=== PATIENT | male | born 1935 | race Caucasian/White ===

== ENCOUNTER → 2020-04-24 | Outpatient (CLI) | payer MEDICARE, OTHER ==
[~2020-04-24] MED LIST: ACET-1600 PO; CHOL10003 PO; HYDR-3240 PO; WARF2TAB99 PO
[2020-04-24 12:03] LABS: BASOPHILS % (AUTO) 1 % (0-1); EOSINOPHILS % (AUTO) 1 % (1-7); LYMPHOCYTES % (AUTO) 12 % (22-44); MEAN CORPUSCULAR HEMOGLOBIN 32.6 pg (27.5-34.5); MEAN CORPUSCULAR HGB CONC 33.4 g/dL (33.2-36.2); MEAN PLATELET VOLUME 8.7 fL (7.4-10.4); MONOCYTES % (AUTO) 11 % (2-9); NEUTROPHILS % (AUTO) 76 % (42-75); PLATELET COUNT 188 x10^3/uL (130-400); RED BLOOD COUNT 3.98 x10^6/uL (4.38-5.82); RED CELL DISTRIBUTION WIDTH 14.1 % (9.4-14.8)
[2020-04-24 12:04] LABS: INTERNATIONAL NORMALIZED RATIO 2.56 (0.93-1.1); PROTHROMBIN TIME 26.9 Seconds (9.6-11.5)
[2020-04-24 12:09] LABS: MD NO
== END | disposition home or self-care (01) ==
LOC: STAR 10:09
PROVIDERS: ATTEND Orthopaedic Surgery
DX: Z01.812 Encounter for preprocedural laboratory examination (principal); Z20.828 Contact with and (suspected) exposure to other viral communicable diseases; M17.11 Unilateral primary osteoarthritis, right knee; I48.91 Unspecified atrial fibrillation; I51.7 Cardiomegaly
CPT/HCPCS: 36415; 85025; 85610; 85730; 87081; 87635; 93005

== ENCOUNTER 2020-04-29 05:12 | Day surgery (SDC) | payer MEDICARE, OTHER ==
[~2020-04-29] VITALS: Ht 180.3 cm; Wt 61.0 kg
[2020-04-29] MEDS ORDERED: CHLORHEXIDINE 15 ML UDC MM STA (06:04)
[2020-04-29] MEDS ORDERED: CHLORHEXIDINE 15 ML UDC ONE (06:08)
[2020-04-29] MEDS ORDERED: LACTATED RINGERS 1,000 ML IV SCH (06:30)
[2020-04-29] MEDS ORDERED: EPINEPHRINE 1 MG/ML, 1ML ONE (06:38)
[2020-04-29] MEDS ORDERED: TRANEXAMIC ACID 100 MG/ML, 10ML ONE (06:38)
[2020-04-29] MEDS ORDERED: BUPIVACAINE/PF 0.5% ONE (06:38)
[2020-04-29] MEDS ORDERED: MIDAZOLAM 1 MG/ML, 2ML ONE (06:48)
[2020-04-29] MEDS ORDERED: FENTANYL PF 250 MCG/5ML ONE (06:48)
[2020-04-29] MEDS ORDERED: PROPOFOL 50 ML ONE ×2 (06:48→07:48)
[2020-04-29] MEDS ORDERED: MORPHINE SULFATE 4 MG/ML, 1ML IVPush PRN (07:00)
[2020-04-29] MEDS ORDERED: HYDROcodone/APAP 10/325 MG TABLET PO PRN (07:00)
[2020-04-29] MEDS ORDERED: ONDANSETRON 4 MG TABLET PO PRN (07:00)
[2020-04-29] MEDS ORDERED: ACETAMINOPHEN 325 MG TABLET PO SCH (07:00)
[2020-04-29] MEDS ORDERED: MAGNESIUM HYDROXIDE 8%, 30ML UDC PO PRN (07:00)
[2020-04-29] MEDS ORDERED: OXYcodone 5 MG/5 ML ORAL.SOL UDC PO PRN (07:30)
[2020-04-29] MEDS ORDERED: FENTANYL PF 100 MCG/2ML IV PRN (07:30)
[2020-04-29] MEDS ORDERED: EPHEDRINE 50 MG/ML, 1ML IVPush PRN (07:30)
[2020-04-29] MEDS ORDERED: EPHEDRINE 50 MG/ML, 1ML IM PRN (07:30)
[2020-04-29] MEDS ORDERED: LABETALOL 5MG/ML, 20ML IV PRN (07:30)
[2020-04-29] MEDS ORDERED: DIPHENHYDRAMINE 50 MG/ML, 1ML IVPush PRN (07:30)
[2020-04-29] MEDS ORDERED: PROMETHAZINE 25 MG/ML, 1ML IVPush PRN (07:30)
[2020-04-29] MEDS ORDERED: DIAZEPAM 5 MG/ML, 2ML IVPush PRN (07:30)
[2020-04-29] MEDS ORDERED: ONDANSETRON 2MG/ML, 2ML IVPush PRN (07:30)
[2020-04-29] MEDS ORDERED: MEPERIDINE/PF 25MG/0.5ML IVPush PRN (07:30)
[2020-04-29] MEDS ORDERED: ACETAMINOPHEN 325 MG TABLET PO PRN (07:30)
[2020-04-29 07:42] LABS: INTERNATIONAL NORMALIZED RATIO 1.13 (0.93-1.1)
[2020-04-29] MEDS ORDERED: WARFARIN 2 MG TABLET PO-COUM SCH (09:00)
[2020-04-29] MEDS ORDERED: HYDROmorphone 1 MG/ML, 1ML INJ ONE (09:21)
[2020-04-29] MEDS: HYDROmorphone 1 MG/ML, 1ML INJ IVPush PRN ×2 (09:24→09:41)
[2020-04-29] MEDS ORDERED: ACETAMINOPHEN 650 MG/20.3 ML UDC ONE (09:34)
[2020-04-29] MEDS ORDERED: OXYcodone 5 MG/5 ML ORAL.SOL UDC ONE (09:34)
[2020-04-29] MEDS ORDERED: FENTANYL PF 100 MCG/2ML ONE (09:46)
[2020-04-29] MEDS ORDERED: DEXAMETHASONE 4 MG/ML, 1ML ONE (10:37)
[2020-04-29] MEDS ORDERED: PROPOFOL 10 MG/ML, 20ML ONE (10:37)
[2020-04-29] MEDS ORDERED: CEFAZOLIN 1,000 MG ONE (10:37)
[2020-04-29] MEDS ORDERED: ONDANSETRON 2MG/ML, 2ML ONE (10:37)
[2020-04-29] MEDS ORDERED: WARFARIN MC SCH (11:00)
[2020-04-29] MEDS ORDERED: DOCUSATE 100 MG CAPSULE PO SCH (11:00)
[2020-04-29] MEDS ORDERED: HYDROcodone/APAP 5/325 TABLET PO SCH (11:00)
[2020-04-29] MEDS ORDERED: CHOLECALCIFEROL 1,000 UNIT TABLET PO SCH (11:00)
[2020-04-29] MEDS ORDERED: CEFAZOLIN PMX 1GM/50ML 50 ML IVPB SCH (11:00)
[2020-04-29] MEDS ORDERED: D5%-0.45% NACL 1,000 ML IV SCH (12:00)
[2020-04-29 14:16] VITALS: BP 93/54
== END 2020-04-29 15:25 | disposition home or self-care (01) ==
LOC: OUT 05:12 → 4NE 10:32 → DCLOUNGE 15:17 → OUT 15:25
PROVIDERS: ATTEND Orthopaedic Surgery
DX: M17.11 Unilateral primary osteoarthritis, right knee (principal); M25.761 Osteophyte, right knee; G89.18 Other acute postprocedural pain; I48.91 Unspecified atrial fibrillation; G47.30 Sleep apnea, unspecified; H40.9 Unspecified glaucoma; Z79.01 Long term (current) use of anticoagulants; Z79.1 Long term (current) use of non-steroidal anti-inflammatories (NSAID); Z79.891 Long term (current) use of opiate analgesic; Z79.899 Other long term (current) drug therapy; Z87.891 Personal history of nicotine dependence; Z90.79 Acquired absence of other genital organ(s); Z90.49 Acquired absence of other specified parts of digestive tract; Z98.890 Other specified postprocedural states; Z82.61 Family history of arthritis
CPT/HCPCS: 27447; 36415; 64447; 73560; 85610; 85730; 97162; C1713; C1776; J0171; J0690; J1100; J1170; J2250; J2405; J2704; J3010; J7120